=== PATIENT | male | born 1965 | race Caucasian/White ===

== ENCOUNTER → 2017-08-02 | Outpatient (CLI) | payer BC ==
[~2017-08-02] MED LIST: ASPIRIN 81M81 MG/TA2 PO; CLEOCIN HCL300 MG PO; COREG 3.123.125 MG/T PO; EFFIENT10 MG PO; LIVALO4 MG PO; NAPROSYN500 MG PO; NORVASC 5MG5 MG/TAB PO; PERCOCET 325 MG1 TA2 PO; PRINIVIL10 MG PO; PRINIVIL40 MG PO; ZOFRAN 4MG T4 MG/TAB PO
== END ==
LOC: COL.LAB 09:03
DX: E78.5 Hyperlipidemia, unspecified (principal)